=== PATIENT | female | born 1990 | race African-American/Black ===

== ENCOUNTER 2018-04-26 14:41 | Emergency (ER) | payer OTHER | END 2018-04-26 18:40 | disposition home or self-care (01) | LOC: ER 14:41 | DX: S13.9XXA Sprain of joints and ligaments of unspecified parts of neck, initial encounter (principal); M79.1 Myalgia; M79.601 Pain in right arm; M79.661 Pain in right lower leg; R20.0 Anesthesia of skin; F17.200 Nicotine dependence, unspecified, uncomplicated; V49.59XA Passenger injured in collision with other motor vehicles in traffic accident, initial encounter; Y93.89 Activity, other specified; Y99.8 Other external cause status; Y92.488 Other paved roadways as the place of occurrence of the external cause | CPT/HCPCS: 72040; 72125; 73130; 73590; 99284-25 ==

== ENCOUNTER 2018-07-04 18:27 | Emergency (ER) | payer OTHER ==
[~2018-07-04] VITALS: Ht 170.2 cm; Wt 90.7 kg
[~2018-07-04 18:27] MED LIST: CYCL10TA2 PO; NAPR500T8 PO
[2018-07-04] MEDS ORDERED: HYDR-971 PO (20:06)
[2018-07-04] MEDS ORDERED: SULF1TAB24 PO (20:06)
[2018-07-04] MEDS ORDERED: CEPH-264 PO (20:06)
--- NOTE | 2018-07-04 20:07 | PHYS DOC ---
Past Medical History Past Medical History: Other Additional Past Medical Histor: LEARNING DISABILITY Past Surgical History: No Surgical History Alcohol Use: Occasionally Drug Use: None Adult General Chief Complaint Chief Complaint: ABSCESS HPI HPI Patient is a 28 year old female presents to the ED complaining of abscess to right inner thigh 3 days ago. Describes the pain as sharp. Rates the pain as 6 out of 10. States she has had similar symptoms past. Denies fever, abdominal pain, headache, weakness, chest pain, shortness of breath, rash or nausea/ vomiting. Review of Systems Review of Systems Constitutional: Denies fever or chills [] Eyes: Denies change in visual acuity, redness, or eye pain [] HENT: Denies nasal congestion or sore throat [] Respiratory: Denies cough or shortness of breath [] Cardiovascular: No additional information not addressed in HPI [] GI: Denies abdominal pain, nausea, vomiting, bloody stools or diarrhea [] : Denies dysuria or hematuria [] Musculoskeletal: Denies back pain or joint pain [] Integument: Complains of abscess to right inner thigh. Denies rash or skin lesions [] Neurologic: Denies headache, focal weakness or sensory changes [] All other systems were reviewed and found to be within normal limits, except as documented in this note. Allergies Allergies Allergies Coded Allergies Type Severity Reaction Last Updated Verified No Known Drug Allergies 04/26/18 No Physical Exam Physical Exam Constitutional: Well developed, well nourished, no acute distress, non-toxic appearance. [] HENT: Normocephalic, atraumatic Skin: Warm, dry. 2 x 2 cm area of erythema, warmth consistent with cellulitis. No abscess or fluctuance. Back: No tenderness, no CVA tenderness. [] Extremities: No tenderness, no cyanosis, no clubbing, ROM intact, no edema. [] Neurologic: Alert and oriented X 3, normal motor function, normal sensory function, no focal deficits noted. [] Psychologic: Affect normal, judgement normal, mood normal. [] EKG EKG [] Radiology/Procedures Radiology/Procedures [] Course & Med Decision Making Course & Med Decision Making Pertinent Labs and Imaging studies reviewed. (See chart for details) []No abscess or fluctuance on exam. Will treat with Bactrim and Keflex outpatient for what appears to be cellulitis. Discussed symptomatic treatment. Discussed follow-up for reevaluation in 3 days. Provided contact information/ education. Discussed reasons to return to the ED. Patient understands and agrees with plan. Madalyn Disclaimer Madalyn Disclaimer This electronic medical record was generated, in whole or in part, using a voice recognition dictation system. Departure Departure Impression: Primary Impression: Cellulitis Disposition: HOME, SELF-CARE Condition: STABLE Referrals: NO PCP (PCP) MIRNA BRUNO MD Patient Instructions: Cellulitis Scripts Hydrocodone/Apap 5-325 (NORCO 5-325 TABLET) 1 Each Tablet 1 TAB PO BID for 4 Days, #8 TAB Prov: BRENDAN MIRAMONTES 07/04/18 Cephalexin (KEFLEX) 500 Mg Capsule 1 CAP PO TID for 7 Days, #21 CAP Prov: BRENDAN MIRAMONTES 07/04/18 Sulfamethoxazole/Trimethoprim (BACTRIM DS TABLET) 1 Each Tablet 1 TAB PO BID for 10 Days, #20 TAB Prov: BRENDAN MIRAMONTES 07/04/18 BRENDAN MIRAMONTES Jul 04, 2018 20:06
[2018-07-04 20:10] VITALS: BP 136/94
== END 2018-07-04 20:19 | disposition home or self-care (01) ==
LOC: ER 18:27
DX: L03.115 Cellulitis of right lower limb (principal)
CPT/HCPCS: 99283

== ENCOUNTER 2018-10-16 13:20 | Emergency (ER) | payer OTHER ==
[~2018-10-16] VITALS: Ht 165.1 cm; Wt 98.0 kg
[~2018-10-16 13:20] MED LIST changes: +CEPH-264 PO; +HYDR-3164 PO; +SULF1TAB24 PO
[2018-10-16 13:45] VITALS: BP 140/75
[2018-10-16 13:59] LABS: BILIRUBIN,URINE NEGATIVE (NEG); CLARITY,URINE CLEAR; COLOR,URINE YELLOW; NITRITE,URINE NEGATIVE (NEG); PH,URINE 6.5; PROTEIN,URINE NEGATIVE (NEG-TRACE)
[2018-10-16 14:18] LABS: BACTERIA,URINE 0 /HPF (0-FEW); RBC,URINE 0 /HPF (0-2); SQUAMOUS EPITHELIAL CELL,UR FEW /LPF; WBC,URINE 0 /HPF (0-4)
--- NOTE | 2018-10-16 14:24 | PHYS DOC ---
Past Medical History Past Medical History: Other Additional Past Medical Histor: LEARNING DISABILITY Past Surgical History: No Surgical History Alcohol Use: Occasionally Drug Use: None Adult General Chief Complaint Chief Complaint: MULTIPLE COMPLAINTS HPI HPI Patient is a 28 year old female who presents with multiple complaints. The patient states that she received a flu vaccination at beginning of September. She states that she felt fine for approximately 1 week and then she began having some chills and feeling of fever. She states that she's had vague symptoms such as shortness of breath. She denies asthma, high fever, cough, sore throat or earaches. Review of Systems Review of Systems Constitutional: See history of present illness Eyes: Denies change in visual acuity, redness, or eye pain [] HENT: Denies nasal congestion or sore throat [] Respiratory: See history of present illness Cardiovascular: No additional information not addressed in HPI [] GI: Denies abdominal pain, nausea, vomiting, bloody stools or diarrhea [] : Denies dysuria or hematuria [] Musculoskeletal: Denies back pain or joint pain [] Integument: Denies rash or skin lesions [] Neurologic: Denies headache, focal weakness or sensory changes [] Endocrine: Denies polyuria or polydipsia [] All other systems were reviewed and found to be within normal limits, except as documented in this note. Current Medications Current Medications Current Medications Medications (Trade) Dose Ordered Sig/Bertha Start Time Stop Time Status Last Admin Dose Admin Albuterol Sulfate (Ventolin Neb Soln) 2.5 mg 1X ONCE 10/16/18 14:30 10/16/18 14:31 DC 10/16/18 14:36 2.5 MG Allergies Allergies Allergies Coded Allergies Type Severity Reaction Last Updated Verified No Known Drug Allergies 04/26/18 No Physical Exam Physical Exam Constitutional: Well developed, well nourished, no acute distress, non-toxic appearance. [] HENT: Normocephalic, atraumatic, bilateral and panic membranes normal, oropharynx moist, no oral exudates, nose normal. [] Eyes: PERRLA, EOMI, conjunctiva normal, no discharge. [] Neck: Normal range of motion, no tenderness, supple, no stridor. [] Cardiovascular:Heart rate regular rhythm, no murmur [] Lungs & Thorax: Bilateral breath sounds clear to auscultation with no wheezes, rales or rhonchi noted [] Abdomen: Bowel sounds normal, soft, no tenderness, no masses, no pulsatile masses. [] Skin: Warm, dry, no erythema, no rash. [] Back: No tenderness, no CVA tenderness. [] Extremities: No tenderness, no cyanosis, no clubbing, ROM intact, no edema. [] Neurologic: Alert and oriented X 3, normal motor function, normal sensory function, no focal deficits noted. [] Psychologic: Affect normal, judgement normal, mood normal. [] Current Patient Data Vital Signs Vital Signs Date Time Temp Pulse Resp B/P (MAP) Pulse Ox O2 Delivery O2 Flow Rate FiO2 10/16/18 14:38 98 Room Air 10/16/18 13:45 98.5 68 18 140/75 (96) 98.5 Lab Values Laboratory Tests Test 10/16/18 13:45 10/16/18 13:53 10/16/18 14:00 Urine Collection Type Unknown Urine Color Yellow Urine Clarity Clear Urine pH 6.5 Urine Specific [place] 1.010 Urine Protein Negative mg/dL (NEG-TRACE) Urine Glucose (UA) Negative mg/dL (NEG) Urine Ketones (Stick) Negative mg/dL (NEG) Urine Blood Negative (NEG) Urine Nitrite Negative (NEG) Urine Bilirubin Negative (NEG) Urine Urobilinogen Dipstick 1.0 mg/dL (0.2 mg/dL) Urine Leukocyte Esterase Negative (NEG) Urine RBC 0 /HPF (0-2) Urine WBC 0 /HPF (0-4) Urine Squamous Epithelial Cells Few /LPF Urine Bacteria 0 /HPF (0-FEW) POC Urine HCG, Qualitative Hcg negative (Negative) Glucose (Fingerstick) 84 mg/dL (70-99) EKG EKG [] Radiology/Procedures Radiology/Procedures [] Course & Med Decision Making Course & Med Decision Making Pertinent Labs and Imaging studies reviewed. (See chart for details) []The patient was given a albuterol nebulizer treatment in the emergency department. Dragon Disclaimer Dragon Disclaimer This electronic medical record was generated, in whole or in part, using a voice recognition dictation system. Departure Departure Impression: Primary Impression: Viral syndrome Disposition: 01 HOME, SELF-CARE Condition: STABLE Referrals: NO PCP (PCP) Patient Instructions: Viral Syndrome Additional Instructions: You may take [id number] cough and cold medications for symptom relief. Follow-up with your primary care provider in one week if not improving or return to the emergency department if worsening. Scripts Albuterol Sulfate (Proair Hfa) 8.5 Gm Hfa.aer.ad 1 PUFF INH PRN Q6HRS PRN for SHORTNESS OF BREATH, #1 INHALER Prov: ANGELO CONNOR APRN 10/16/18 ANGELO CONNOR APRN Oct 16, 2018 14:24
[2018-10-16] MEDS ORDERED: ALBUTEROL SULFATE 2.5 MG/3 ML NEBU. NEB ONE (14:30)
[2018-10-16] MEDS ORDERED: ALBU2.5V8 INH (14:51)
== END 2018-10-16 14:53 | disposition home or self-care (01) ==
LOC: ER 13:20
DX: B34.9 Viral infection, unspecified (principal)
CPT/HCPCS: 81001; 81025; 82962; 94640; 99283; J7613

== ENCOUNTER 2021-07-10 13:25 | Emergency (ER) | payer MEDICAID, OTHER ==
[~2021-07-10] VITALS: Ht 165.1 cm; Wt 108.0 kg
[~2021-07-10 13:25] MED LIST changes: +ALBU2.5V8 INH
[2021-07-10 13:53] VITALS: BP 90/75
--- NOTE | 2021-07-10 14:26 | RAD ---
EXAM: Right knee, 4 views. HISTORY: Pain. COMPARISON: None. FINDINGS: 4 views of the right knee are obtained. There is no fracture, dislocation or subluxation. T here is slight enthesopathy along the superior patella. There is no joint effusion. IMPRESSION: No acute osseous finding. Electronically signed by: Brit Mccormack MD (07/10/2021 2:24 PM) [id number]
--- NOTE | 2021-07-10 15:40 | PHYS DOC ---
Past Medical History Past Medical History: Other Additional Past Medical Histor: LEARNING DISABILITY Past Surgical History: No Surgical History Smoking Status: Current Every Day Smoker Alcohol Use: Occasionally Drug Use: None General Adult EDM: Chief Complaint: OTHER COMPLAINTS HPI: HPI: Patient is a 31 year old female who presents the ED today complaining of right knee pain and swelling, symptoms began 2 days ago. Patient denies any injuries. Rates the pain as mild and intermittent worse on touching her knee. States elevating the legs relieves the pain. Patient is also requesting a Covid test. She states she has had nasal congestion for 2 days. She states she went to [facility] but they were busy with someone other people and could not attend to her quickly. Review of Systems: Review of Systems: Constitutional: Denies fever or chills. [] HENT: Reports nasal congestion. Denies nasal congestion or sore throat. [] Respiratory: Denies cough or shortness of breath. [] Musculoskeletal: Reports right knee pain Integument: Denies rash. [] Neurologic: Denies headache, focal weakness or sensory changes. [] Psychiatric: Denies depression or anxiety. [] Heart Score: C/O Chest Pain: N/A Risk Factors: Risk Factors: DM, Current or recent (<one month) smoker, HTN, HLP, family history of CAD, obesity. Risk Scores: Score 0 - 3: 2.5% MACE over next 6 weeks - Discharge Home Score 4 - 6: 20.3% MACE over next 6 weeks - Admit for Clinical Observation Score 7 - 10: 72.7% MACE over next 6 weeks - Early Invasive Strategies Allergies: Allergies: Allergies Coded Allergies Type Severity Reaction Last Updated Verified No Known Drug Allergies 04/26/18 No Physical Exam: PE: Constitutional: Well developed, well nourished, no acute distress, non-toxic appearance. [] HENT: Normocephalic, atraumatic, bilateral external ears normal, oropharynx moist, no oral exudates, patient sounds congested nasally Neck: Normal range of motion, no tenderness, supple, no stridor. [] Cardiovascular:Heart rate regular rhythm, no murmur [] Lungs & Thorax: Bilateral breath sounds clear to auscultation [] Skin: Warm, dry, no erythema, no rash. [] Back: No tenderness, no CVA tenderness. [] Extremities: Right knee with no obvious deformity. Slight swelling noted on the proximal tibia plateau, slight tenderness over the region. Full range of motion to the right knee, negative Cecilio sign, negative Chris sign, negative anterior posterior drawer sign. +2 right pedal pulse. Cap refill less than 2 seconds the right lower extremity. Neurologic: Alert and oriented X 3, normal motor function, normal sensory function, no focal deficits noted. [] Psychologic: Affect normal, judgement normal, mood normal. [] Current Patient Data: Labs: Laboratory Tests Test 07/10/21 14:30 SARS-CoV-2 Antigen (Rapid) Negative (NEGATIVE) Vital Signs: Vital Signs Date Time Temp Pulse Resp B/P (MAP) Pulse Ox O2 Delivery O2 Flow Rate FiO2 07/10/21 13:53 98.2 93 16 90/75 (80) 96 98.2 EKG: EKG: [] Radiology/Procedures: Radiology/Procedures: []PROCEDURE: KNEE RIGHT 4V EXAM: Right knee, 4 views. HISTORY: Pain. COMPARISON: None. FINDINGS: 4 views of the right knee are obtained. There is no fracture, dislocation or subluxation. There is slight enthesopathy along the superior patella. There is no joint effusion. IMPRESSION: No acute osseous finding. Electronically signed by: Brit Bhatti MD (07/10/2021 2:24 PM) [id number] DICTATED and SIGNED BY: BRIT BHATTI MD DATE: 07/10/21 [id number] Course & Med Decision Making: Course & Med Decision Making Pertinent Labs and Imaging studies reviewed. (See chart for details) This a 31-year-old female patient presented to the ED today with right knee pain and swelling, symptoms for 2 to 3 days. Right knee x-rays interpreted by radiologist are negative for any acute findings. Patient is also requesting a Covid test because she has nasal congestion. Rapid Covid test is negative. Discharge to home. Instructed to quarantine herself until she gets the PCR results from us. Provided return precautions. OTC pain relievers for knee p ain. Follow-up with Ortho for knee pain Madalyn Disclaimer: Madalyn Disclaimer: This electronic medical record was generated, in whole or in part, using a voice recognition dictation system. Departure Departure Impression: Primary Impression: Right knee pain Qualified Codes: M25.561 - Pain in right knee Additional Impression: Person under investigation for COVID-19 Disposition: HOME / SELF CARE / HOMELESS Condition: STABLE Referrals: LILLIE POND MD (PCP) follow up in one week MIRNA LYONS DO follow up in 1-2 weeks Patient Instructions: Knee Pain, [id number] Additional Instructions: You were evaluated in the emergency room, your right knee x-rays are negative for any acute findings. Your rapid Covid test is negative. We did a PCR Covid test. We will call you when results come back. In the meantime you need to quarantine yourself until you get results. Take Tylenol or Motrin for pain or fever. Push fluids. Follow-up with the provided orthopedic doctor in 1 week if knee pain continues ISAAC NICOLE APRN Jul 10, 2021 15:40
--- NOTE | 2021-07-12 12:45 | NUR ---
IP: Attempted to contact pt concerning covid results. no answer, left a voicemail to return the call. Addendum: 07/12/21 at 1252 by SENAIT TIJERINA RN IP: Pt returned my call. Informed her of the negative covid test. Pt verbalized understanding.
== END 2021-07-10 15:54 | disposition home or self-care (01) ==
LOC: ER 13:25
DX: M25.561 Pain in right knee (principal); R22.41 Localized swelling, mass and lump, right lower limb; F17.200 Nicotine dependence, unspecified, uncomplicated; Z20.822 Contact with and (suspected) exposure to COVID-19
CPT/HCPCS: 73564; 87426; 99284; U0003; U0005